=== PATIENT | female | born 1950 | race Caucasian/White ===

== ENCOUNTER 2023-04-19 16:13 | Outpatient (CLI) | payer BC, OTHER ==
[2023-04-19 17:26] LABS: #Eosinphils 0.1 10x3/uL (0.0-0.5); #Monocytes 0.5 10x3/uL (0.0-1.1); #Neutrophils 2.5 10x3/uL (1.5-8.4); %Basophils 0.8 % (0.0-2.0); %Eosinophils 1.2 % (0.0-6.0); %Monocytes 8.9 % (0.0-10.0); %Neutrophils 48.9 % (40.0-75.0); Hematocrit 40.2 % (34.9-44.5); Hemoglobin 13.7 g/dL (12.0-15.5); Mean Corpuscular HGB CONC 34.1 g/dL (32.0-36.0); Mean Corpuscular Hemoglobin 31.3 pg (27.0-33.0); Mean Corpuscular Volume 91.8 fl (81.6-98.3); Mean Platelet Volume 9.4 fl (7.4-10.4); Platelet Count 266 10x3/uL (150-450); RBC Distribution Width 13.2 % (11.5-14.5); Red Blood Cell (RBC) Count 4.38 10x6/uL (3.90-5.03); White Blood Cell (WBC) Count 5.1 10x3/uL (3.5-10.5)
== END 2023-04-19 16:14 | disposition home or self-care (01) ==
LOC: LABBT 16:13
PROVIDERS: ATTEND Orthopaedic Surgery Hand Surgery
DX: Z01.818 Encounter for other preprocedural examination (principal)
CPT/HCPCS: 85025; 86140; 93005; 93010

== ENCOUNTER 2023-04-23 05:43 | Day surgery (SDC) | payer BC, OTHER ==
[2023-04-19 16:58] VITALS: BMI 22.3
[2023-04-23] MEDS ORDERED: CEFAZOLIN 2 GM VIAL ONE (06:12)
[2023-04-23] MEDS ORDERED: Sodium Chloride 0.9% 100 ML ONE (06:12)
[2023-04-23] MEDS ORDERED: Lidocaine 1% MPF 2 ML VIAL ONE (06:12)
[2023-04-23] MEDS ORDERED: Midazolam HCl 2 mg/2 ml Vial ONE ×2 (06:15→07:04)
[2023-04-23] MEDS ORDERED: Lidocaine 1% (PF) 30 ML VIAL ONE (06:15)
[2023-04-23] MEDS ORDERED: EPINEPHrine 1 MG/ML VIAL ONE (06:15)
[2023-04-23] MEDS ORDERED: fentaNYL 50 mcg/mL 1 mL Vial ONE ×2 (06:15→07:04)
[2023-04-23] MEDS ORDERED: Bupivacaine PF 0.5% 30 ML VIAL ONE (06:16)
[2023-04-23] MEDS ORDERED: Bacitracin Zinc Ointment 30 gm TUBE ONE (06:24)
[2023-04-23] MEDS ORDERED: PROPOFOL 20 ML ONE (06:39)
[2023-04-23] MEDS ORDERED: Lidocaine 1% PF 5 ML VIAL ONE (06:40)
[2023-04-23] MEDS ORDERED: Ropivacaine 0.5% HCl/PF (150 MG/30 ML VIAL) ONE (07:04)
[2023-04-23] MEDS ORDERED: PHENYLEPHRINE-NS 100 MCG/ML 10 ML SYRINGE ONE (07:34)
[2023-04-23] MEDS ORDERED: Ondansetron PF 4 MG/2 ML Vial ONE (09:06)
== END 2023-04-23 10:50 | disposition home or self-care (01) ==
LOC: SDC 05:43
PROVIDERS: ATTEND Orthopaedic Surgery Hand Surgery
PROC: 0PSJ06Z Reposition Left Radius with Intramedullary Internal Fixation Device, Open Approach (ICD-10-PCS; principal; 2023-04-23)
DX: S52.592G Other fractures of lower end of left radius, subsequent encounter for closed fracture with delayed healing (principal); X58.XXXA Exposure to other specified factors, initial encounter; Z88.5 Allergy status to narcotic agent
CPT/HCPCS: C1713; J0171; J2001; J2250; J2405; J2704; J2795; J3010; J3490; S0020